=== PATIENT | female | born 1985 | race Two or more races ===

== ENCOUNTER 2020-03-23 14:31 | Inpatient (IN) | payer MEDICAID ==
[~2020-03-23] VITALS: Ht 167.6 cm; Wt 70.3 kg
[2020-03-23] MEDS ORDERED: MORPHINE SULFATE 4 MG/ML CPJ (NOT FOR IM USE) IV ONE ×2 (16:15→19:15)
[2020-03-23 16:20] LABS: CHLORIDE 107 mEq/L (98-107)
[2020-03-23 16:21] LABS: BASOPHILS % 0.1 % (0.0-2.0); HEMOGLOBIN. 13.2 g/dL (12.0-16.0); LYMPHOCYTES % 9.7 % (20.0-50.0); MEAN CORPUSCULAR HEMOGLOBIN 29.9 pg (28.0-32.0); MEAN CORPUSCULAR VOLUME 88.4 fL (81.0-99.0); MEAN PLATELET VOLUME 9.7 fl (7.4-10.4); MONOCYTES % 3.3 % (2.0-8.0); NEUTROPHILS % 86.9 % (40.0-76.0); PLATELET 243 x1000/uL (130-400); RED BLOOD CELL COUNT 4.41 mill/uL (4.2-5.4); RED CELL DISTRIBUTION WIDTH 14.3 % (11.6-14.6)
[2020-03-23 16:44] LABS: B-HCG QUANTITATIVE 11242 mIU/mL (<3)
[2020-03-23 19:02] LABS: CLARITY URINE CLOUDY (CLEAR); COLOR URINE YELLOW (YELLOW); KETONES URINE NEGATIVE (NEGATIVE); LEUKOCYTE ESTERASE URINE 1+ (NEGATIVE); NITRITE URINE NEGATIVE (NEGATIVE); OCCULT BLOOD URINE NEGATIVE (NEGATIVE); PROTEIN URINE NEGATIVE (NEGATIVE); SPECIFIC GRAVITY URINE 1.013 (1.005-1.030)
[2020-03-23] MEDS ORDERED: CEFTRIAXONE 1 G PREMIX 50 ML IV ONE (21:00)
[2020-03-23] MEDS ORDERED: ONDANSETRON HCL 4MG/2ML INJ IV PRN (21:30)
[2020-03-23] MEDS ORDERED: CEFTRIAXONE 1,000 MG in DEXTROSE 5% WATER 50 ML IV SCH (22:00)
[2020-03-23 23:00] VITALS: BP 102/69
[2020-03-23] MEDS ORDERED: LAM25 MT (23:35)
[2020-03-23] MEDS ORDERED: QUET50TA PO (23:35)
[2020-03-24] VITALS: BP 102/69
[2020-03-24] MEDS: CEFTRIAXONE 1,000 MG in DEXTROSE 5% WATER 50 ML IV SCH (02:44)
[2020-03-24] MEDS: SODIUM CHLORIDE 0.9% 1,000 ML IV SCH ×3 (02:55→22:29)
[2020-03-24 04:00] VITALS: BP 112/59
[2020-03-24 06:11] LABS: BASOPHILS % 0.1 % (0.0-2.0); EOSINOPHILS % 0.1 % (0.0-5.0); HEMATOCRIT. 36.7 % (36.0-48.0); HEMOGLOBIN. 12.4 g/dL (12.0-16.0); LYMPHOCYTES % 15.6 % (20.0-50.0); MEAN CORPUSCULAR HEMOGLOBIN 29.8 pg (28.0-32.0); MEAN CORPUSCULAR VOLUME 88.2 fL (81.0-99.0); MEAN PLATELET VOLUME 9.6 fl (7.4-10.4); MONOCYTES % 4.6 % (2.0-8.0); NEUTROPHILS % 79.6 % (40.0-76.0); PLATELET 217 x1000/uL (130-400); RED BLOOD CELL COUNT 4.16 mill/uL (4.2-5.4); RED CELL DISTRIBUTION WIDTH 14.3 % (11.6-14.6)
[2020-03-24 06:32] LABS: CHLORIDE 105 mEq/L (98-107)
[2020-03-24 07:49] VITALS: BP 100/48
[2020-03-24 12:00] VITALS: BP 109/56
[2020-03-24 13:57] LABS: *AMPHETAMINES SCREEN URINE NEGATIVE (NEGATIVE); *BARBITURATES SCREEN URINE NEGATIVE (NEGATIVE); *BENZODIAZEPINES SCREEN URINE NEGATIVE (NEGATIVE); *COCAINE SCREEN URINE NEGATIVE (NEGATIVE)
[2020-03-24 13:58] LABS: CANNABINOID URINE SCREEN NEGATIVE (NEGATIVE); METHADONE URINE SCREEN NEGATIVE (NEGATIVE); PHENCYCLIDINE URINE SCREEN NEGATIVE (NEGATIVE)
[2020-03-24 13:59] LABS: OPIATES URINE SCREEN PRESUMTIVE POSITIVE (NEGATIVE)
[2020-03-24 16:00] VITALS: BP 107/55
[2020-03-24] MEDS: AMPICILLIN 1,000 MG in SODIUM CHLORIDE 0.9% 50 ML IV SCH ×2 (17:15→22:28)
[2020-03-24 20:00] VITALS: BP 103/57
[2020-03-24] MEDS: ACETAMINOPHEN 325MG TABLET PO PRN (21:17)
[2020-03-25] VITALS: BP 119/56
[2020-03-25] MEDS: CEFTRIAXONE 1,000 MG in DEXTROSE 5% WATER 50 ML IV SCH (01:47)
[2020-03-25 04:00] VITALS: BP 95/50
[2020-03-25] MEDS: AMPICILLIN 1,000 MG in SODIUM CHLORIDE 0.9% 50 ML IV SCH ×4 (04:56→22:54)
[2020-03-25 06:38] LABS: CHLORIDE 108 mEq/L (98-107)
[2020-03-25 06:43] LABS: BASOPHILS % 0.1 % (0.0-2.0); HEMATOCRIT. 36.8 % (36.0-48.0); HEMOGLOBIN. 12.4 g/dL (12.0-16.0); LYMPHOCYTES % 15.9 % (20.0-50.0); MEAN CORPUSCULAR HEMOGLOBIN 29.9 pg (28.0-32.0); MEAN CORPUSCULAR VOLUME 88.7 fL (81.0-99.0); MEAN PLATELET VOLUME 9.9 fl (7.4-10.4); PLATELET 226 x1000/uL (130-400); RED BLOOD CELL COUNT 4.15 mill/uL (4.2-5.4); RED CELL DISTRIBUTION WIDTH 14.3 % (11.6-14.6)
[2020-03-25 06:47] LABS: CREATINE KINASE 27 IU/L (26-192)
[2020-03-25 08:00] VITALS: BP 105/54
[2020-03-25] MEDS: SODIUM CHLORIDE 0.9% 1,000 ML IV SCH ×2 (10:16→22:54)
[2020-03-25 12:00] VITALS: BP 92/56
[2020-03-25 20:00] VITALS: BP 138/81
[2020-03-25] MEDS: ACETAMINOPHEN 325MG TABLET PO PRN (22:54)
[2020-03-26] MEDS: CEFTRIAXONE 1,000 MG in DEXTROSE 5% WATER 50 ML IV SCH (00:47)
[2020-03-26 04:00] VITALS: BP 96/43
[2020-03-26] MEDS: AMPICILLIN 1,000 MG in SODIUM CHLORIDE 0.9% 50 ML IV SCH ×4 (05:00→23:16)
[2020-03-26 06:53] LABS: CHLORIDE 110 mEq/L (98-107)
[2020-03-26 06:54] LABS: BASOPHILS % 0.1 % (0.0-2.0); EOSINOPHILS % 0.1 % (0.0-5.0); HEMATOCRIT. 34.8 % (36.0-48.0); HEMOGLOBIN. 11.6 g/dL (12.0-16.0); LYMPHOCYTES % 15.8 % (20.0-50.0); MEAN CORPUSCULAR HEMOGLOBIN 29.7 pg (28.0-32.0); MEAN CORPUSCULAR VOLUME 88.8 fL (81.0-99.0); MEAN PLATELET VOLUME 9.7 fl (7.4-10.4); MONOCYTES % 4.9 % (2.0-8.0); NEUTROPHILS % 79.1 % (40.0-76.0); PLATELET 196 x1000/uL (130-400); RED BLOOD CELL COUNT 3.91 mill/uL (4.2-5.4)
[2020-03-26 08:02] VITALS: BP 104/55
[2020-03-26 11:55] VITALS: BP 102/50
[2020-03-26] MEDS: SODIUM CHLORIDE 0.9% 1,000 ML IV SCH (12:32)
[2020-03-26] MEDS ORDERED: NITR100C MT (13:37)
[2020-03-26] MEDS ORDERED: TOPUD PO (13:37)
[2020-03-26] MEDS ORDERED: CEPH-569 MT (13:37)
[2020-03-26 16:00] VITALS: BP 120/60
[2020-03-26 20:00] VITALS: BP 123/65
[2020-03-26] MEDS: ACETAMINOPHEN 325MG TABLET PO PRN (20:40)
[2020-03-27] VITALS: BP 112/53
[2020-03-27] MEDS: CEFTRIAXONE 1,000 MG in DEXTROSE 5% WATER 50 ML IV SCH (02:24)
[2020-03-27] MEDS: SODIUM CHLORIDE 0.9% 1,000 ML IV SCH (02:24)
[2020-03-27 04:00] VITALS: BP 104/53
[2020-03-27] MEDS: AMPICILLIN 1,000 MG in SODIUM CHLORIDE 0.9% 50 ML IV SCH ×2 (06:12→11:27)
[2020-03-27 07:39] LABS: HEMATOCRIT. 34.5 % (36.0-48.0); HEMOGLOBIN. 11.6 g/dL (12.0-16.0); LYMPHOCYTES % 12.1 % (20.0-50.0); MEAN CORPUSCULAR HEMOGLOBIN 29.9 pg (28.0-32.0); MONOCYTES % 6.4 % (2.0-8.0); NEUTROPHILS % 81.5 % (40.0-76.0); PLATELET 188 x1000/uL (130-400); RED BLOOD CELL COUNT 3.88 mill/uL (4.2-5.4); RED CELL DISTRIBUTION WIDTH 14.1 % (11.6-14.6)
[2020-03-27 07:49] LABS: CHLORIDE 109 mEq/L (98-107)
[2020-03-27 08:00] VITALS: BP 101/54
[2020-03-27 10:58] VITALS: BP 101/54
== END 2020-03-27 13:30 | disposition home or self-care (01) | DRG 566 ==
LOC: ER 14:31 → 8WST 21:17 → EDBEDREQ 21:27 → EDBEDREQTM 21:27 → ENRESERV 21:38 → CANRESERV 21:38 → EDBEDREQSVC 21:40 → ENRESERV 21:56
PROVIDERS: ADMIT Internal Medicine; ATTEND Internal Medicine
DX: O98.812 Other maternal infectious and parasitic diseases complicating pregnancy, second trimester (principal); A41.9 Sepsis, unspecified organism; O23.42 Unspecified infection of urinary tract in pregnancy, second trimester; E83.42 Hypomagnesemia; O21.9 Vomiting of pregnancy, unspecified; O26.52 Maternal hypotension syndrome, second trimester; O26.892 Other specified pregnancy related conditions, second trimester; Z3A.19 19 weeks gestation of pregnancy; Z59.0 Homelessness
CPT/HCPCS: 36415; 76770; 76805; 80053; 80305; 81003; 82550; 83735; 84702; 85025; 86850; 86900; 96365; 99285; G0378; J0290; J0696; J2270; J7060